=== PATIENT | male | born 1945 | race Hispanic/Latino ===

== ENCOUNTER 2022-05-25 09:15 | Observation (INO) | payer OTHER, MEDICAID ==
[2022-05-25 09:53] LABS: #Basophils 0.1 10x3/uL (0.0-0.2); #Eosinphils 0.1 10x3/uL (0.0-0.5); #Monocytes 0.5 10x3/uL (0.0-1.1); #Neutrophils 3.9 10x3/uL (1.5-8.4); %Basophils 0.8 % (0.0-2.0); %Eosinophils 1.4 % (0.0-6.0); %Lymphocytes 28.1 % (18.0-47.0); %Monocytes 8.2 % (0.0-10.0); %Neutrophils 61.2 % (40.0-75.0); Hemoglobin 14.6 g/dL (13.5-17.5); Mean Corpuscular HGB CONC 33.9 g/dL (32.0-36.0); Mean Corpuscular Hemoglobin 28.4 pg (27.0-33.0); Mean Corpuscular Volume 83.9 fl (81.2-95.1); Mean Platelet Volume 11.2 fl (7.4-10.4); Platelet Count 194 10x3/uL (150-450); RBC Distribution Width 13.2 % (11.5-14.5); Red Blood Cell (RBC) Count 5.14 10x6/uL (4.32-5.72); White Blood Cell (WBC) Count 6.3 10x3/uL (3.5-10.5)
[2022-05-25 10:24] LABS: ALT (SGPT) 23 U/L (8-55); AST (SGOT) 22 U/L (5-34); Albumin 4.7 g/dL (3.4-4.8); Alkaline Phosphatase 66 U/L (40-110); Anion Gap 15 mmol/L (10-20); BUN (Urea Nitrogen) 15 mg/dL (8.4-25.7); Bilirubin, Total 0.4 mg/dL (0.2-1.2); Calc. Creatinine Clearance 0 mL/min (70-130); Calcium 9.5 mg/dL (7.8-10.44); Carbon Dioxide 27 mmol/L (23-31); Chloride 102 mmol/L (98-107); Estimated GFR 75; Globulin 3.5 g/dL (2.4-3.5); Glucose 131 mg/dL (83-110); Lipase 67 U/L (8-78); Potassium 3.5 mmol/L (3.5-5.1); Protein, Total 8.2 g/dL (5.8-8.1); Sodium 140 mmol/L (136-145)
[2022-05-25 10:36] LABS: Bilirubin Neg (Negative); Blood, Urine 25 (Negative); Clarity Clear (Clear); Glucose, Urine (Dipstick) Normal (Negative); Ketone, Urine Negative (Negative); Leukocyte Negative (Negative); Nitrite Negative (Negative); Protein, Urine (Dipstick) Negative (Neg-Trace); Urobilinogen Normal mg/dL (Less than 2)
[2022-05-25 10:49] LABS: Bacteria/HPF None Seen HPF (None Seen); RBC/HPF 0-3 HPF (0-3); Squamous Epithelial None Seen HPF (0-3); WBC/HPF None Seen HPF (0-3)
[2022-05-25] MEDS ORDERED: Aspirin 325 MG TAB ONE (12:34)
[2022-05-25 14:15] LABS: Troponin I Less than 0.010 ng/mL (< 0.028)
[2022-05-25 16:05] VITALS: BMI 18.4
[2022-05-25 17:16] LABS: Troponin I Less than 0.010 ng/mL (< 0.028)
[2022-05-25] MEDS: Lorazepam 1 MG TAB PO PRN (18:29)
[2022-05-25 20:05] LABS: Troponin I Less than 0.010 ng/mL (< 0.028)
[2022-05-25] MEDS ORDERED: Atorvastatin Calcium 10 MG TAB PO SCH (21:00)
[2022-05-26] MEDS: Lorazepam 1 MG TAB PO PRN ×3 (03:54→15:44)
[2022-05-26 04:55] LABS: Cardiac Risk 5.5 (Less than 4.5)
[2022-05-26] MEDS ORDERED: Iopamidol 370 76% 100 ML VIAL ONE (08:14)
[2022-05-26] MEDS ORDERED: Tamsulosin HCl 0.4 MG CAP PO SCH (09:00)
[2022-05-26] MEDS ORDERED: Amlodipine 10 MG TAB PO SCH (09:00)
[2022-05-26] MEDS ORDERED: Aspirin Chewable 81 MG TAB PO SCH (09:00)
[2022-05-26 18:40] VITALS: BP 129/87; TEMP 98.1
== END 2022-05-26 17:45 | disposition home or self-care (01) ==
LOC: CSHERS 09:15 → CSHTELE 14:58
PROVIDERS: ADMIT Internal Medicine; ATTEND Internal Medicine
DX: R07.89 Other chest pain (principal); I10 Essential (primary) hypertension; E78.5 Hyperlipidemia, unspecified; F41.9 Anxiety disorder, unspecified; Z79.899 Other long term (current) drug therapy; Z79.82 Long term (current) use of aspirin
CPT/HCPCS: 71045; 71275; 80053; 80061; 83690; 84484 ×2; 85025; 85379; 93005; 93306; 94760; 96372; 99285; G0378 ×3; 36415; 81003; 81015; J1650; Q9967